=== PATIENT | male | born 1970 | race Caucasian/White ===

== ENCOUNTER 2021-04-22 11:12 | Emergency (ER) | payer MEDICARE ==
[~2021-04-22] VITALS: Ht 167.6 cm; Wt 87.3 kg
[2021-04-22] MEDS ORDERED: RABIES VACCINE HUMAN 2.5 INTERNATIONAL UNITS/ML VIAL (90675) IM ONE (13:40)
[2021-04-22] MEDS ORDERED: RABIES IMMUNE GLOBULIN 1500 INTERNATIONAL UNIT/5ML VIAL (90375) IM ONE (13:40)
[2021-04-22] MEDS ORDERED: TETANUS IMMUNE GLOBULIN (HUMAN) 250 UNITS/ML SYRINGE (J1670)(90389) IM ONE (13:40)
[2021-04-22 14:06] VITALS: BP 137/96
== END 2021-04-22 23:52 | disposition home or self-care (01) ==
LOC: M ED 11:12
DX: S60.372A Other superficial bite of left thumb, initial encounter (principal); W55.81XA Bitten by other mammals, initial encounter; Y92.018 Other place in single-family (private) house as the place of occurrence of the external cause; M51.9 Unspecified thoracic, thoracolumbar and lumbosacral intervertebral disc disorder; F17.210 Nicotine dependence, cigarettes, uncomplicated
CPT/HCPCS: 90375; 90471; 90675; 96372; 99281; J1670

== ENCOUNTER 2021-04-25 08:12 | Emergency (ER) | payer MEDICARE, OTHER ==
[~2021-04-25] VITALS: Ht 167.6 cm; Wt 91.2 kg
[2021-04-25] MEDS ORDERED: RABIES VACCINE HUMAN 2.5 INTERNATIONAL UNITS/ML VIAL (90675) IM ONE (08:50)
[2021-04-25 09:34] VITALS: BP 131/73
== END 2021-04-25 09:35 | disposition home or self-care (01) ==
LOC: M ED 08:12
DX: Z23 Encounter for immunization (principal); F17.200 Nicotine dependence, unspecified, uncomplicated

== ENCOUNTER 2021-04-29 07:41 | Emergency (ER) | payer MEDICARE, OTHER ==
[~2021-04-29] VITALS: Ht 167.6 cm; Wt 91.8 kg
[2021-04-29 07:41] VITALS: BP 154/89
[2021-04-29] MEDS ORDERED: RABIES VACCINE HUMAN 2.5 INTERNATIONAL UNITS/ML VIAL (90675) IM ONE (08:00)
== END 2021-04-29 08:25 | disposition home or self-care (01) ==
LOC: M ED 07:41
DX: Z20.3 Contact with and (suspected) exposure to rabies (principal); M51.9 Unspecified thoracic, thoracolumbar and lumbosacral intervertebral disc disorder; G89.29 Other chronic pain; F17.200 Nicotine dependence, unspecified, uncomplicated; Z98.890 Other specified postprocedural states; Z80.0 Family history of malignant neoplasm of digestive organs

== ENCOUNTER 2021-05-06 07:46 | Emergency (ER) | payer MEDICARE, OTHER ==
[~2021-05-06] VITALS: Ht 167.6 cm; Wt 91.8 kg
[2021-05-06 07:46] VITALS: BP 155/99
[2021-05-06] MEDS ORDERED: TRAZ-252 PO (07:52)
[2021-05-06] MEDS ORDERED: RABIES VACCINE HUMAN 2.5 INTERNATIONAL UNITS/ML VIAL (90675) IM ONE (08:00)
== END 2021-05-06 08:28 | disposition home or self-care (01) ==
LOC: M ED 07:46
DX: Z23 Encounter for immunization (principal); Z20.3 Contact with and (suspected) exposure to rabies; M51.9 Unspecified thoracic, thoracolumbar and lumbosacral intervertebral disc disorder; F17.210 Nicotine dependence, cigarettes, uncomplicated; F12.20 Cannabis dependence, uncomplicated